=== PATIENT | female | born 1950 | race American Indian/Alaskan Native ===

== ENCOUNTER 2018-11-20 10:00 | Day surgery (SDC) | payer OTHER ==
[~2018-11-20] VITALS: Ht 162.6 cm; Wt 106.6 kg
[~2018-11-20 10:00] MED LIST: ASPIR-LOW81 MG PO; CALCIUM500 MG PO; LIPITOR10 MG PO; LISINOPRIL10 MG PO; LOVASTATIN10 MG PO; NORCO 7.5-3251 EACH PO; ULTRAM50 MG PO; VITAMIN D400 UNI1 PO
[2018-11-20] MEDS ORDERED: IRBESARTAN-HCT1 EACH PO (10:21)
--- NOTE | 2018-11-20 10:53 | NUR ---
LE 1015: PATIENT REPORTS "BURNING" ON HER RIGHT BREAST. PATIENT REPORTS HAVING WIPED HER ENTIRE BODY WITH THE CHG WIPES. WARM WASH CLOTH GIVEN TO WIPE HER RIGHT BREAST. PATIENT IS QUITE TEARFUL AND IS LOUDLY SOBBING. PATIENT NOT ANSWERING MY QUESTIONS. PARK ATTENDANT CONTACTED AND SHE OKAYS GIVEN VERSED NOW. PRN GIVEN. PATIENT QUIETS AND SOBBING CEASES. PATIENT SHAKES HER HEAD YES WHEN ASKED IF SHE IS FEELING BETTER.
--- NOTE | 2018-11-20 14:53 | NUR ---
11/20/18 1453 Amparo Mccallum 1442 PT ARRIVED TO PACU WITH ORAL AIRWAY IN PLACE AND ON 8L VIA MASK. PT ASLEEP. RESP EVEN AND UNLABORED. 1444 PT WOKE TO TACTILE STIMULI AND ORAL AIRWAY IS REMOVED. PT DENIES NAUSEA AND PAIN. PT REORINTED TO PACU. 1445 O2 MASK REMOVED. 1452 PT RESTING WITH EYES CLOSED.
--- NOTE | 2018-11-20 16:20 | NUR ---
1505 PT ARRIVES FROM PACU, AWAKE. VITALS STABLE. DENIES PAIN AND NAUSEA. DRESSING TO THE R BREAST C,D,I. WATER GIVEN. PT GIVEN PHONE TO CONTACT DAUGHTER FOR RIDE HOME. CALL LIGHT IN REACH.
--- NOTE | 2018-11-20 16:21 | NUR ---
1600 IN TO CHECK ON PT. PT RESTING WITH EYES CLOSED. WATER REFILLED.VITALS STABLE. PT CONTINUES TO RATE PAIN 0/10. DENIES NAUSEA. CRACKERS AND FOOD OFFERED, PT DECLINED. NO FURTHER NEEDS AT THIS TIME. CALL LIGHT IN REACH.
--- NOTE | 2018-11-20 16:28 | NUR ---
PATIENT STANDS AT THE BEDSIDE AND WALKS AROUND HER ROOM. PATIENT DENIES DIZZINESS AND REQUESTS DC HOME. DC INSTRUCTIONS GIVEN IN PRESENCE OF HER DAUGHTER AND BOTH VERBALIZE UNDERSTANDING. PATIENT DRESSING HERSELF.
--- NOTE | 2018-11-21 06:34 | OR ---
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 PROCEDURES PERFORMED: 1. A 5 mm punch biopsy, right lateral nipple (9 o'clock). 2. Full-thickness excisional right breast biopsy (9 o'clock). ESTIMATED BLOOD LOSS: None. INDICATIONS: Kathy is a 68-year-old female who had undergone a mammogram in March 2018. That was unremarkable. She then noticed some changes in the right breast early August 2018. There was beefy red color around the nipple-areolar complex. She had pain and some weeping around the area of the nipple. She had been to her primary care provider. She had been on clindamycin and some type of antibiotic ointment for the breast. She even used fluconazole as an antifungal, nothing made any difference. It sounds like she went to see her fee clerk who asked her to have a biopsy of her right breast to rule out Paget's disease versus pagetoid melanoma. She is in the office. I had met with her and I explained to her the idea of Paget's disease of the breast. We talked about full-thickness punch biopsies of the nipple and the skin of the breast. She said it was far too painful to have a needle put into her nipple or breast while she was awake. We decided to do it over at the operating room with her under anesthesia. She understands the samples will be sent off to our pathology Department. We will have her back in about a week to review those results. I reviewed with her the nature of the punch biopsy and excisional biopsy of the breast involving the skin, underlying subcutaneous tissue, and some breast tissue as well. She understands there is risk including, but not limited to bleeding, infection, scarring, change in contour of the skin as well as possible need for additional treatments and/or surgery. She has expressed understanding and wished to proceed. PROCEDURE NOTE: I met with Kathy in our preop area. With our nurse present, we were all able to Electronically Signed By: DOUGLAS GUTIÉRREZ MD 11/21/18 0634 PATIENT NAME: KATHY ALFORD OPERATIVE REPORT DATE OF : 46 REPORT #: [id number] PHYSICIAN: DOUGLAS GUTIÉRREZ MD PCP: CANDI CHEN REPORT IS CONFIDENTIAL AND NOT TO BE RELEASED WITHOUT AUTHORIZATION [facility] [address] [place], [place] [address] Signed easily identify the right breast as the side that was involved. It was marked appropriately. After this, Kathy was taken into our operating room and placed in the supine position under general LMA anesthesia. She was given preoperative antibiotics along with subcutaneous heparin. SCDs were utilized. She was then prepped and draped in the usual sterile fashion. After this, a 5 mm punch biopsy was used to remove some tissue from the nipple at the 9 o'clock position. A 3-0 nylon suture was used in a [id number] fashion to close that tiny biopsy site. We then used our #10 blade knife to make an elliptical incision involving the areola and the skin just lateral to the areola at the 9 o'clock position. This was taken down through the subcutaneous tissues and into some of the breast tissue itself. Hemostasis was achieved with cautery. We injected local anesthetic underneath the nipple and throughout the excisional biopsy site. The excisional biopsy was about 4 mm wide, by about 10 mm or 12 mm in length plus the underlying tissue. After this, we closed the deep tissue gently with interrupted 3-0 Monocryl suture, then closed the dermis with interrupted 3-0 Monocryl sutures and brought the skin edges back together with a running 6-0 fast absorbing plain gut suture. Dry gauze and tape were then applied. Kathy was awakened from her anesthesia, extubated in the OR, and taken to recovery room in stable condition. Douglas Gutiérrez MD ALB/MODL /[id number] cc: MD Candi Liu Copies: DOUGLAS GUTIÉRREZ MD, ELIZABETH ~ Electronically Signed By: DOUGLAS GUTIÉRREZ MD 11/21/18 0634 PATIENT NAME: KATHY ALFORD OPERATIVE REPORT DATE OF : 46 REPORT #: [id number] PHYSICIAN: DOUGLAS GUTIÉRREZ MD PCP: CANDI CHEN REPORT IS CONFIDENTIAL AND NOT TO BE RELEASED WITHOUT AUTHORIZATION
== END 2018-11-20 16:30 | disposition home or self-care (01) ==
LOC: DS 10:00
PROVIDERS: Colon & Rectal Surgery
PROC: 0HBT3ZX Excision of Right Breast, Percutaneous Approach, Diagnostic (ICD-10-PCS; 2018-11-20)
PROC: 0HBT0ZX Excision of Right Breast, Open Approach, Diagnostic (ICD-10-PCS; principal; 2018-11-20 12:15)
DX: L30.8 Other specified dermatitis (principal); I10 Essential (primary) hypertension; E78.5 Hyperlipidemia, unspecified; M85.80 Other specified disorders of bone density and structure, unspecified site; F17.210 Nicotine dependence, cigarettes, uncomplicated; E66.01 Morbid (severe) obesity due to excess calories; Z88.0 Allergy status to penicillin; Z79.82 Long term (current) use of aspirin; Z79.899 Other long term (current) drug therapy; Z68.41 Body mass index [BMI] 40.0-44.9, adult
CPT/HCPCS: 00404; J0690; J1100; J1644; J1885; J2175; J2250; J2405; J2704; J3010; J7120

== ENCOUNTER 2023-05-03 10:48 | Day surgery (SDC) | payer MEDICARE, OTHER ==
[~2023-05-03] VITALS: Ht 160 cm; Wt 113.6 kg
[~2023-05-03 10:48] MED LIST changes: +COLACE100 MG PO; +IRBESARTAN-HCT1 EACH PO; +LEVOFLOXACIN750 MG PO; +NORVASC5 MG PO; +ONDANSETRON ODT8 MG PO
[2023-05-03 11:15] VITALS: BP 109/70
[2023-05-03] MEDS ORDERED: CALCIUM + D3 E1 EACH PO (11:18)
--- NOTE | 2023-05-03 12:28 | NUR ---
05/03/23 1228 Alessio,Amparo 1222 PT ARRIVED TO PACU ON 3L VIA NC, DECREASED BP NOTED AND PT ROLLED SLGIHTLY TO BACK WITH NO CHANGE IN BP. PT EASILY FALLS BACK TO SLEEP AND FLUIDS INCREASED. RESP EVEN AND UNLABORED.
[2023-05-03 13:16] VITALS: BP 106/66
--- NOTE | 2023-05-04 14:14 | OR ---
[facility] [address] [place], [place] [address] Signed DATE OF OPERATION: 05/03/2023 SURGEON: Lucrecia Watters MD PREOPERATIVE DIAGNOSIS: History of hyperplastic polyps 2012, otherwise asymptomatic. POSTOPERATIVE DIAGNOSES: 1. Diverticulosis of the sigmoid. 2. Small polyps x3. PROCEDURE: Total colonoscopy to cecum with cold morcellation polypectomy x2 and cold snare polypectomy x1. ANESTHESIA: Intravenous sedation; fentanyl 100 mcg and Versed 5 mg. INDICATION: This 72-year-old white woman is a patient of Candi Chen of [facility]. She underwent colonoscopy in 2012 at which time she had several hyperplastic polyps. She has no symptoms of bleeding, diarrhea or constipation at this time and has no family history of colon cancer. She is admitted to undergo colonoscopy. She understands the risk of bleeding, infection and perforation. FINDINGS: The prep was good. Complete colonoscopy was undertaken to the cecum. There was some hypertrophy of the mucosa of the ileocecal valve, which was biopsied, but no true polyp and certainly no inflammatory bowel disease. There is a small polyp of left transverse colon, another of left colon and another of the sigmoid, all excised. Diverticulosis was noted of the sigmoid and left colon. DESCRIPTION OF PROCEDURE: The patient was brought to the endoscopy suite and placed in the lateral decubitus position, given intravenous sedation to the point of slurred speech and nystagmus. Digital rectal examination was normal. An Olympus video colonoscope was passed in the rectum and manipulated throughout the colon ultimately intubating the cecum. Ileocecal valve appeared somewhat hyperplastic and biopsies obtained, though did not appear adenomatous. Narrow band imaging confirmed Electronically Signed By: LUCRECIA WATTERS MD 05/04/23 1414 PATIENT NAME: KATHY ALFORD OPERATIVE REPORT DATE OF : 46 REPORT #: [id number] PHYSICIAN: LUCRECIA WATTERS MD PCP: CANDI CHEN REPORT IS CONFIDENTIAL AND NOT TO BE RELEASED WITHOUT AUTHORIZATION [facility] [address] [place], [place] [address] Signed that as well. The scope was withdrawn from that point and a small somewhat sessile polyp possibly hyperplastic was noted in the left transverse colon. This was excised with cold snare technique. Further withdrawal showed another similar such polyp of the left colon which was excised with cold morcellation technique. Diverticula were once again seen in the sigmoid and a small polyp of the rectosigmoid also excised with cold morcellation technique. Retroflexed view of the rectum showed no polyps. There were few internal hemorrhoidal changes. The scope was straightened, withdrawn and removed and the patient was taken to the recovery room in good condition. CONCLUDING DIAGNOSES: 1. Polyps x3, possibly hyperplastic. 2. Diverticulosis. PLAN: Recommend high-fiber diet. Recommend repeat colonoscopy in 5 years if adenomatous polyps were identified, 10 years if not. MD PRIYANKA Machuca/JOSEPHINE /[id number] cc: Candi Chen Copies: CANDI CHEN ~ Electronically Signed By: LUCRECIA WATTERS MD 05/04/23 1414 PATIENT NAME: KATHY ALFORD OPERATIVE REPORT DATE OF : 46 REPORT #: [id number] PHYSICIAN: LUCRECIA WATTERS MD PCP: CANDI CHEN REPORT IS CONFIDENTIAL AND NOT TO BE RELEASED WITHOUT AUTHORIZATION
--- NOTE | 2023-05-07 15:14 | PATH ---
[facility] [address] [place], [place] [address] Signed SPECIMEN(S): A ILEOCECAL VALVE POLYP SPECIMEN(S): B TRANSVERSE COLON POLYP SPECIMEN(S): C SIGMOID POLYP SPECIMEN SOURCE: A. ILEOCECAL VALVE POLYP B. TRANSVERSE COLON POLYP C. SIGMOID POLYP CLINICAL HISTORY: History of hyperplastic appearing polyps of sigmoid and rectum; surveillance colonoscopy. Post: Diverticulosis/polyps x 3. FINAL PATHOLOGIC DIAGNOSIS: A. Ileocecal valve polyp: - Benign small bowel type mucosa, negative for dysplasia or pathologic inflammation. - Colonic mucosa with reactive features and slight chronic inflammation. - The colonic mucosa shows submucosal lobulated adipose tissue consistent with lipoma. B. Transverse colon polyp: - Hyperplastic polyp (1 fragment). C. Sigmoid polyp: - Hyperplastic polyp (2 fragments). JVR:[id number] MICROSCOPIC EXAMINATION: Histologic sections of all submitted blocks are examined by light microscopy. These findings, together with the gross examination, support the pathologic diagnosis. GROSS DESCRIPTION: A. The specimen, labeled and designated "Eugenio, Abdulaziz," and designated on the requisition "ileum, ileocecal valve polypectomy," is received in formalin and consists of two johansen, soft, polypoid tissue fragments measuring 0.2 x 0.3 cm, specimens are submitted entirely in (A1). B. The specimen, labeled and designated "Eugenio, Abdulaziz," and designated on the requisition "colon, transverse polypectomy," is received in formalin and consists of one johansen, soft, polypoid tissue fragment measuring 0.6 x 0.3 cm and submitted entirely in (B1). C. The specimen, labeled and designated "Eugenio, M," and designated on the PATIENT NAME: KATHY ALFORD PATHOLOGY DATE OF : 46 REPORT #: [id number] PHYSICIAN: BETH PATHOLOGY PCP: JORGE LUIS CHEN REPORT IS CONFIDENTIAL AND NOT TO BE RELEASED WITHOUT AUTHORIZATION [facility] [address] [facility] [place] [place] [address] Signed requisition "colon, sigmoid polypectomy," is received in formalin and consists of two johansen-brown, soft, polypoid tissue fragments measuring 0.4 x 0.3 cm and entirely in (C1). MMA (under the direct supervision of a pathologist) The Gross Description was prepared using a voice recognition system. The report was reviewed for accuracy; however, sound-alike word errors, addition and/or deletions may occur. If there is any question about this report, please contact Client Services. PERFORMING LABORATORY: Technical component was performed by [facility], [address] [place] [id number] (CLIA# [id number]). Professional interpretation was performed by [facility], [address] [place] [id number] (CLIA#: [id number]). Diagnostician: Morris Thomas MD Pathologist Electronically Signed 05/07/2023 Copies: ~ PATIENT NAME: KATHY ALFORD PATHOLOGY DATE OF : 46 REPORT #: [id number] PHYSICIAN: BETH BENAVIDEZ PCP: JORGE LUIS CHEN REPORT IS CONFIDENTIAL AND NOT TO BE RELEASED WITHOUT AUTHORIZATION
== END 2023-05-03 13:33 | disposition home or self-care (01) ==
LOC: OPS 10:48 → DS 10:54 → OPS 12:00 → DS 14:00
PROVIDERS: ATTEND Surgery
PROC: 0DBL8ZX Excision of Transverse Colon, Via Natural or Artificial Opening Endoscopic, Diagnostic (ICD-10-PCS; 2023-05-03)
PROC: 0DBC8ZX Excision of Ileocecal Valve, Via Natural or Artificial Opening Endoscopic, Diagnostic (ICD-10-PCS; principal; 2023-05-03 12:00)
DX: Z12.11 Encounter for screening for malignant neoplasm of colon (principal); K57.30 Diverticulosis of large intestine without perforation or abscess without bleeding; K63.5 Polyp of colon; K64.8 Other hemorrhoids; K52.9 Noninfective gastroenteritis and colitis, unspecified; I10 Essential (primary) hypertension; E66.01 Morbid (severe) obesity due to excess calories; Z68.41 Body mass index [BMI] 40.0-44.9, adult; Z90.711 Acquired absence of uterus with remaining cervical stump; Z79.82 Long term (current) use of aspirin; Z79.899 Other long term (current) drug therapy
CPT/HCPCS: 99153; G0500; J2250; J3010; J7121

== ENCOUNTER 2024-11-06 13:41 | Emergency (ER) | payer MEDICARE, OTHER ==
[~2024-11-06] VITALS: Ht 160 cm; Wt 99.3 kg
[~2024-11-06 13:41] MED LIST changes: +CALCIUM + D3 E1 EACH PO
[2024-11-06 17:27] LABS: EOSINOPHILS 0.5 % (0-6); HEMATOCRIT 37.4 % (35.0-50.0); HEMOGLOBIN 12.5 g/dL (12.0-18.0); MCH 29.2 (27-36); MCHC 33.4 g/dl (30-36); MCV 87.3 fl (81-99); MONOCYTES 5.2 % (0-12); NEUTROPHILS 68.3 % (39-80); PLATELET COUNT 189 K/uL (140-440); RBC 4.28 M/ul (4.3-5.7); RDW 13.2 (10.5-15.0)
[2024-11-06 17:50] LABS: ALBUMIN 3.2 g/dL (3.4-5.0); ALBUMIN/GLOBULIN RATIO 0.91 (1.1-2.4); ANION GAP 11.1 (7-21); BILIRUBIN, TOTAL 0.5 ng/dL (0.2-1.0); BUN/CREATININE RATIO 16.85 (6.0-28.6); CREATININE, SERUM 0.89 mg/dL (0.55-1.02); POTASSIUM 4.1 mmol/L (3.5-5.1); PROTEIN, TOTAL 6.7 g/dL (6.4-8.2); TSH, 3RD GENERATION 0.941 uIU/mL (0.358-3.740)
[2024-11-06 18:08] LABS: BILIRUBIN, URINE POSITIVE (negative); BLOOD/HGB, URINE NEGATIVE (Negative); KETONE, URINE SMALL (Negative); LEUK ESTERASE, URINE NEGATIVE (negative); NITRITE, URINE NEGATIVE (negative)
[2024-11-06 18:14] LABS: BACTERIA, URINE NONE SEEN /hpf (negative); CASTS, URINE NONE SEEN \\lpf; COLLECTION TYPE, URINE CLEAN CATCH; CRYSTALS, URINE NONE SEEN (0-1+); EPITHELIAL CELLS, URINE SQUAMOUS 4+ /lpf (0-1+); RED BLOOD CELLS, URINE 0-1 /hpf (0-5); REFLEX CULTURE, URINE No (No)
[2024-11-06 18:59] LABS: CORONAVIRUS COVID-19 AG NEGATIVE (NEGATIVE); INFLUENZA A AG NEGATIVE (NEGATIVE); INFLUENZA B AG NEGATIVE (NEGATIVE)
[2024-11-06] MEDS ORDERED: CYCLOBENZAPRINE10 MG PO (19:07)
[2024-11-06] MEDS ORDERED: ZITHROMAX250 MG PO (19:07)
[2024-11-06] MEDS ORDERED: AZITHROMYCIN 250 MG TAB PO ONE (19:15)
[2024-11-06 19:22] VITALS: BP 146/70
== END 2024-11-06 19:23 | disposition home or self-care (01) ==
LOC: ED 13:41
PROVIDERS: Emergency Medicine
DX: J18.9 Pneumonia, unspecified organism (principal); I10 Essential (primary) hypertension; E78.5 Hyperlipidemia, unspecified; M81.0 Age-related osteoporosis without current pathological fracture; F17.200 Nicotine dependence, unspecified, uncomplicated; Z88.0 Allergy status to penicillin; Z79.82 Long term (current) use of aspirin; Z79.899 Other long term (current) drug therapy
CPT/HCPCS: 36415; 71045; 80053; 81001; 84443; 85025; 99284-25